=== PATIENT | female | born 1985 | race Hispanic/Latino ===

== ENCOUNTER 2019-06-09 12:09 | Emergency (ER) | payer SELFPAY | END 2019-06-09 13:15 | disposition home or self-care (01) | LOC: NAV ERS 12:09 | DX: J10.1 Influenza due to other identified influenza virus with other respiratory manifestations (principal) | CPT/HCPCS: 87081; 87430; 87804; 99283 ==

== ENCOUNTER 2021-10-09 09:15 | Emergency (ER) | payer SELFPAY | END 2021-10-09 10:35 | disposition home or self-care (01) | LOC: NAV ERS 09:15 | DX: H10.9 Unspecified conjunctivitis (principal) | CPT/HCPCS: 99283 ==